=== PATIENT | male | born 1985 | race Hispanic/Latino ===

== ENCOUNTER 2017-04-14 06:19 | Day surgery (SDC) | payer OTHER ==
[~2017-04-14] VITALS: Ht 160 cm; Wt 81.6 kg
[~2017-04-14 06:19] MED LIST: MULTI VIT PO
[2017-04-14 10:02] VITALS: BP 112/56
== END 2017-04-14 10:00 | disposition home or self-care (01) | DRG 585 ==
LOC: ORM 06:19
PROVIDERS: ATTEND Surgery
PROC: 0HBV0ZX Excision of Bilateral Breast, Open Approach, Diagnostic (ICD-10-PCS; principal; 2017-04-14)
DX: D17.1 Benign lipomatous neoplasm of skin and subcutaneous tissue of trunk (principal)